=== PATIENT | female | born 2000 | race Caucasian/White ===

== ENCOUNTER 2021-05-19 21:27 | Emergency (ER) | payer MEDICAID, OTHER ==
[~2021-05-19] VITALS: Ht 149.9 cm; Wt 54.4 kg
[2021-05-19 21:30] VITALS: BP 105/68
--- NOTE | 2021-05-19 21:33 | NUR ---
TO LOBBY A/W BED AMBULATORY
--- NOTE | 2021-05-19 22:35 | NUR ---
PT AMBULATED TO BED 8
--- NOTE | 2021-05-19 22:40 | NUR ---
20 Y/O FEMALE C/O LOWER ABD PAIN X4 DAYS WITH NAUSEA. DENIES VOMITING/DIARRHEA. ABD IS FLAT, SOFT, AND TENDER ON PALPATION. PT ALSO C/O BURNING URINATION. PT TOOK TYLENOL WITH SOME RELIEF. PT A/O X4 WITH EVEN AND UNLABORED RESPIRATIONS. PT IN GOWN. PMH:DENIES NKDA
--- NOTE | 2021-05-19 22:42 | NUR ---
DR MCFADDEN AT BEDSIDE EVALUATING PT
[2021-05-19] MEDS ORDERED: KETOROLAC 30 MG/ML VIAL IM ONE (22:50)
--- NOTE | 2021-05-19 22:51 | NUR ---
Elsy egan in [facility] - 05/19/21 at 2251 by FLORIN PT TAKEN TO RADIOLOGY
--- NOTE | 2021-05-19 22:51 | NUR ---
PT TAKEN TO RAD VIA WHEELCHAIR
--- NOTE | 2021-05-19 22:51 | NUR ---
PT TAKEN TO RADIOLOGY
--- NOTE | 2021-05-19 23:01 | NUR ---
PT RETURN FROM RADIOLOGY
--- NOTE | 2021-05-19 23:04 | NUR ---
LAB AT BEDSIDE
--- NOTE | 2021-05-19 23:10 | NUR ---
US AT BEDSIDE
[2021-05-19 23:14] LABS: HEMATOCRIT 38.6 % (36-48); MEAN CORPUSCULAR HEMOGLOBIN 29 pg (27-31); MEAN CORPUSCULAR HGB CONC 34 g/dL (33-37); PLATELET COUNT (AUTO) 256 K/uL (140-450); RED CELL DISTRIBUTION WIDTH 12.6 % (11.6-13.7); WHITE BLOOD COUNT (AUTO) 14.9 K/uL (4.8-10.8)
[2021-05-19 23:33] LABS: ALBUMIN 4.4 g/dL (3.4-5.0); ANION GAP 14.5 (8-16); CARBON DIOXIDE 25.6 mmol/L (21-32); CREATININE 0.7 mg/dL (0.6-1.3); POTASSIUM 4.1 mmol/L (3.5-5.1); TOTAL BILIRUBIN 0.7 mg/dL (0.0-1.0)
[2021-05-19 23:48] LABS: EOSINOPHILS % (MANUAL) 1 % (0-4); LYMPHOCYTES % (MANUAL) 11 % (20-46); MONOCYTES % (MANUAL) 4 % (5-12)
[2021-05-20] MEDS ORDERED: ONDA-24 PO (01:00)
[2021-05-20] MEDS ORDERED: IBUP-2213 PO (01:00)
--- NOTE | 2021-05-20 01:17 | NUR ---
Patient discharged with v/s stable. Written and verbal after care instructions ABOUT ABDOMINAL PAIN given and explained. Patient alert, oriented and verbalized understanding of instructions. Ambulatory with steady gait. All questions addressed prior to discharge. ID band removed. Patient advised to follow up with PMD. Rx of IBUPROFEN AND ZOFRAN given. Patient educated on indication of medication including possible reaction and side effects. Opportunity to ask questions provided and answered.
[2021-05-20 01:19] VITALS: BP 98/54
== END 2021-05-20 01:17 | disposition home or self-care (01) ==
LOC: MED 21:27
DX: R10.32 Left lower quadrant pain (principal); R30.9 Painful micturition, unspecified; R11.0 Nausea; Z79.899 Other long term (current) drug therapy
CPT/HCPCS: 36415; 74021; 76856; 80053; 81002; 81025; 83690; 85025; 93976; 96372; 99285; J1885; Q0092